=== PATIENT | male | born 1940 | race Caucasian/White ===

== ENCOUNTER 2025-05-05 11:50 | Outpatient (AMB) | payer MEDICARE, OTHER, SELFPAY ==
--- OUTSIDE RECORDS SUMMARY | 2024-08-24 10:00 | XMS_ITS ---
Author Organization [facility] Address [address] [facility] [place] [address] Care Team Providers Care Experimental Machinist Name Role Phone Iva MCDONNELL, Claude Primary Care Provider Neelam Evans Unavailable [phone] Karel Huang Unavailable [phone] REASON FOR VISIT r/s for sooner apt Medications Medication SIG (Take, Route, Frequency, Duration) Notes Start Date End Date Status Clopidogrel Bisulfate 75 MG 1 tablet Ora lly Once a day Active Metformin & Diet Manage Prod 500 MG as directed Orally Unknown Aspirin 81 MG 1 tablet Orally Once a day; Duration: 30 day(s) Active Caduet 5-80 MG as directed Orally Unknown Losartan Potassium 25 MG 1 tablet Orally Once a day; Duration: 30 day(s) Unknown DULoxetine HCl 20 MG 1 capsule Orally On ce a day Active Rosuvastatin Calcium 40 MG 1 tablet Oral ly Once a day Active Vitamin D3 Active Farxiga 10 MG 1 tablet Orally Once a day Active Ferrous Sulfate 325 (65 Fe) MG 1 tablet Orally Three times a Week Active Social History Tobacco Use: Social History Observation Description Date Details (start date - stop date) Former Smoker NA - NA Tobacco Use/Smoking Question Answer Notes Are you a: former smoker Additional Findings: Tobacco Non-User Current no n-smoker Alcohol Screen Question Answer Notes Did you have a drink containing alcohol in the p ast year? No Points 0 Interpretation Negative Tobacco use other than smoking: Question Answer Notes Are you an other tobacco user? No Vital Signs Height 5ft 6in in 08/24/2024 Weight 146 lbs 08/24/2024 BMI 23.56 kg/m2 08/24/2024 Encounters Encounter Location Date Provider Diagnosis [facility] [place] [address] [place] [address] 08/24/2024 Karel Huang Plan Of Treatment No Information Progress Notes * Rich BALLARD EDOB:[birth year] (84 yo M)Acc No.[id number]:08/24/2024 Progress Notes Patient: Rich MURPHY Provider: Ken Huang DPM :1940 A ge:84 Y S ex:Male Date:08/24/2024 [facility] Pcp:Claude Enrique MD Subjective: * Chief Complaints: * 1 . R/s for sooner apt. * ROS: G eneral/Constitutional: Nausea d enies. V omiting d enies. H ryan Thirst d enies. L oss appetite d enies. C hills d enies. F atigue d enies.?Fever d enies. N ight Sweats d enies. U nexplained weight loss d enies. U nexplained weight gain d enies. H EENTM: Dentures a dmits. D izziness d enies. G lasses/contacts a dmits. R etinopathy d enies. B lurred/double vision a dmits. T MJ?denies. D ischarge/drainage d enies. I mplants d enies. S ore throat d enies. D ental implants d enies. H adam of hearing a dmits. D ifficulty chewing/swallowing/speaking d enies. N ose bleeds d enies. S ore mouth d enies. ? R espiratory: On Oxygen d enies. P neumonia/pleurisy d enies.?Bronchitis d enies. E mphysema d enies. C oughing d enies. C ough blood?denies. S hortness of breath d enies. W heezing d enies. C ardiovascular: Pacemaker a dmits. M METAL TEMPERER d enies. W PW d enies. C HF d enies. H eart attack d enies. S eptal defect d enies. R apid beat d enies. C hest pain d enies. A trial Fib. d enies. M urmur/Palpitations d enies. G astrointestinal: Hemorrhoids d enies. S tomach/Abdominal pain d enies. D ark blood stool d enies. I rritable bowel d enies. C onstipation d enies. D iarrhea d enies. H ematology: Swelling a dmits. C lots d enies. V aricose Veins d enies. B ruising d enies. B leeding problem d enies. G enitourinary: Blood urine d enies. F requent/Painfu/urination/bladder control a dmits. K idney stones d enies. I nfection (UTI) d enies. N ephropathy d enies. s ex trans dis (STD) d enies. P rostate d enies. M usculoskeletal: Hammertoes d enies. B unions d enies. B ack Pain a dmits. M uscle Cramps/ Resting a dmits. M uscle cramps / walking a dmits.?Generalized aches and pains d enies. W eakness d enies. I nteg.: [place] d enies. S cars d enies. C orns/calluses?denies. I ngrown nails d enies. P ainful nails d enies. O pen Sores a dmits. R ashes d enies. N eurologic: Difficulty sleeping a dmits. B rain disorder d enies. N umbness a dmits. B alance trouble d enies. C onfusion d enies. F ainting/blackouts a dmits. T ingling a dmits. T remors a dmits. * Medical History: C holesterol, Diabetic, Heart disease, High blood pressure, Mumps, Chicken pox, Broken bones, CAD (Cholesterol), Cataracts, Covid-19, Diabetic, Kidney disease, Chicken pox, Numbness, Parkinsons disease, Poor circulation, Stroke, Vascular grafts. * Surgical History: C arotid surgery 2002, Bypass surgery 2004, Renal artery 2006, Basal cell 2023. * Family History: M other: , Stroke, diagnosed with Unspecified heart disease. F ather: , stroke, diagnosed with Diabetic - NIDDM, Unspecified essential hypertension, Unspecified heart disease, Family history of arthritis. * Social History: T obacco Use: T obacco Use/Smoking A re you a: f ormer smoker A dditional Findings: Tobacco Non-User C urrent non-smoker Tobacco use other than smoking A re you an other tobacco user? N o D rugs/Alcohol: D rugs H ave you used drugs other than those for medical reasons in the past 12 months? N o Alcohol Screen D id you have a drink containing alcohol in the past year? N o P oints 0 I nterpretation N egative M iscellaneous: C affeine: yes, frequency:, 1-2 cups per day. Marital status: . Occupation: Retired- senior accountant. * Medications: T aking DULoxetine HCl 20 MG Capsule Delayed Release Particles 1 capsule Orally Once a day , Taking Vitamin D3 , Taking Rosuvastatin Calcium 40 MG Tablet 1 tablet Orally Once a day , Taking Ferrous Sulfate 325 (65 Fe) MG Tablet 1 tablet Orally Three times a Week , Taking Farxiga 10 MG Tablet 1 tablet Orally Once a day , Taking Clopidogrel Bisulfate 75 MG Tablet 1 tablet Orally Once a day , Taking Aspirin 81 MG Tablet Chewable 1 tablet Orally Once a day , Unknown Metformin & Diet Manage Prod 500 MG Miscellaneous as directed Orally , Unknown Losartan Potassium 25 MG Tablet 1 tablet Orally Once a day , Unknown Caduet 5-80 MG Tablet as directed Orally Objective: * Vitals: H t: 5ft 6in, Wt: 146, BMI: 23.56, Shoe size: 9.5, Ht-cm: 167.64 cm, Wt-k.22 kg. Assessment: Plan: * Treatment: * Images: * The named appointment provid er may or may not be the originator of this progress note, and it is not deemed complete until electronically signed by the appointment provider. Sign off status: Pending * Provider: Ken Huang DPM Date: 10/24/2023 Generated for Bijal cat/Spencer/Seamus on: 05/05/2025 12:38 PM EDT
--- NOTE | 2025-05-05 11:53 | A.OFFVIS_ITS ---
Vital Signs 05/05/25 11:59 Height 5 ft 6 in Intake Visit Reasons: 6m pd Accompanied by: Spouse Allergies No Known Allergies Allergy (Verified 05/05/25 12:00) Medication List - Last Reconciled 05/05/25 by Jackie Loza CNP aspirin 81 mg PO DAILY carbidopa-levodopa 25-100 mg 1 tab PO TID clopidogrel 75 mg PO DAILY dapagliflozin propanediol (Farxiga) 10 mg PO DAILY dapagliflozin propanediol (Farxiga) 10 mg PO DAILY duloxetine 30 mg PO DAILY rosuvastatin 40 mg PO DAILY HPI Comments Details: 84 y/o man with PVD, REM sleep behavior disorder, mild parkinsonism with hand tremor, and peripheral neuropathy. In 09/2023, he had an episode when he was with his in a car when he became unresponsive for a few minutes. He was taken to [facility]. He was here with his . No further episodes of passing out since getting pacemaker in 06/2024. He was taking carbidopa-levodopa 25-100mg three times a day. Tremors are about the same. No functional impairment. No difficulty eating or drinking. Sleep was not so good, waking few times during the night. His noted that he was moving slower. Balance was off at times, but no falls. He was having some more pain in legs. He had follow up appointment soon to review vascular study results. He was more forgetful. [facility] Medical History (Updated 05/05/25 @ 12:10 by Jackie Loza CNP) Pacemaker Complex partial seizures Peripheral neuropathy Parkinsonism Unspecified atrial fibrillation Multiple cerebral infarctions Cerebral microvascular disease Special needs due to hearing impairment Spastic bladder REM sleep behavior disorder Review of Systems Const Denies chills, Denies daytime sleepiness, Reports difficulty sleeping, Denies fatigue, Denies fever(s), Denies frequent falls, Denies headache(s), Denies increased appetite, Denies poor appetite, Denies snoring, Denies weakness, Denies weight gain and Denies weight loss Eyes Denies loss of vision ENT Denies vertigo, Denies dizziness and Denies headache(s) Card Denies chest pain at rest, Denies chest pain with activity, Denies syncope, Denies leg edema and Denies palpitations Resp Denies snoring GI Denies constipation, Denies heartburn, Denies diarrhea and Denies nausea Denies urinary frequency, Denies urinary incontinence and Denies urinary urgency Musc Denies abnormal gait, Denies numbness and Denies tingling Skin/Breast Denies dry skin and Denies rash Neuro Denies abnormal gait, Denies vertigo, Denies dizziness, Denies syncope, Denies frequent falls, Denies headache(s), Denies lack of coordination, Denies loss of vision, Reports memory loss, Denies numbness, Denies restless legs, Denies seizure-like activity, Denies tingling, Denies paresthesias, Reports tremor(s) and Denies weakness Psych Denies anxiety, Denies depression, Denies auditory hallucinations, Reports memory loss, Denies visual hallucinations and Denies suicidal ideation Endo Denies fatigue and Denies palpitations Physical Exam Const Other: General Appearance:? normal, in no acute distress. Skin:? no rashes, no significant birthmarks. Heart:? S1, S2 normal, no murmurs. Lungs:? clear anteriorly and posteriorly. Extremities:? no edema. Psych:? alert, oriented, cognitive function intact, cooperative with exam. Neuro Other: Mental Status:?Normal attention, orientation, memory and affect.? Cranial Nerves:?Pupils are equal, round and reactive to light. External occular muscles are intact. Visual cedeno are full. Face is symmetrical. Facial sensations are normal. Tongue is midline. Palate elevates symmetrically. Shoulder shrugging is normal. Hearing to bedside conversation is decreased. Sensory Exam:?....? Coordination:?No ataxia,?no titubation.? Gait Exam: Cautious. Forward leaning posture with small stepped gait. Cerebellar Signs:?Bogedn-ov-yuav is okay. Extrapyramidal System:?Reduced facial expressions and decreased blinking frequency. Mild cogwheeling rigidity L > R. Pronator Drift:?Not present.? Involuntary Movements:?Mild bilateral hand resting tremor L > R. Speech:?Normal.? Results Reviewed Results Reviewed: Routine EEG at [facility] in Nov 2023: Slow NCV/EMG LE (in office) Moderate to severe axonal sensory and motor peripheral neuropathy. 07/24/23. MRI brain WO at [facility] in 2019: Mod MVD, some lesions seems embolic in nature Assessment & Plan Assessment & Plan (1) Parkinsonism: Code(s): G20.C - Parkinsonism, unspecified Category: Medical Qualifiers: Parkinsonism type: unspecified Qualified Code(s): G20.C - Parkinsonism, unspecified Plan: Increase carbidopa-levodopa 25-100mg 1 tablet four times a day. Referral for PT eval and treat placed. Stay physically active. (2) REM sleep behavior disorder: Code(s): G47.52 - REM sleep behavior disorder Category: Medical Plan: He tried gabapentin 300mg at bedtime in the past, but medication did not help and he was more tired during the day. (3) Peripheral neuropathy: Code(s): G62.9 - Polyneuropathy, unspecified Category: Medical Qualifiers: Peripheral neuropathy type: polyneuropathy, unspecified Qualified Code(s): G62.9 - Polyneuropathy, unspecified Plan . Orders: Orders PT Evaluation and Treatment Today G20.C - Parkinsonism, unspecified Medications: New carbidopa-levodopa 25-100 mg (Sinemet) 1 tab PO QID 360 tabs 1RF 90 days Coding Level of Care Code Est Pt Level 4 (95020) Diagnoses Parkinsonism, unspecified Parkinsonism type G20.C Parkinsonism type: unspecified REM sleep behavior disorder G47.52 Peripheral polyneuropathy G62.9 Peripheral neuropathy type: polyneuropathy, unspecified
--- OUTSIDE RECORDS SUMMARY | 2025-05-05 12:38 | XMS_ITS | Encounter Summary ---
Author Organization [facility] Address [address] [place] [address] Phone Care Team Providers Care Utilization Review Rn Name Role Phone Claude Enrique MD Primary Care Provider [phone] Encounter Details Date Type Department Care Team (Late Contact Info) Description 03/13/2021 Orders Only [facility] [address] [place] [address] ProviderShawanda MD Social History Tobacco Use Types Packs/Day Years Used Date Smoking Tobacco: Former Cigarettes Q uit: 10/20/1972 Sex and Gender Information Value Date Recorded Sex Assigned at Not on file Legal Sex Male 5:15 PM EST Gender Identity Not on file Sexual Orientation Not on file COVID-19 Exposure Response Date Recorded In the last month, have you been in contact with someone who was confirmed or suspected to have Coronavirus / COVID-19? No / Unsure 03/13/2021 2:13 PM EDT documented as of this encounter Plan of Treatment Upcoming Encounters Date Type Department Care Team (Late st Contact Info) Description 09/22/2025 10:30 AM EST Office Visit [facility] [address] [address] [place] [id number] Umu Hassan ARNP [address] [facility] [address] [place] [address] documented as of this encounter Procedures Procedure Name Priority Date/Time Associated Diagnosis Comments EXT RESULT ENTRY Routine 03/12/2021 documented in this encounter Results * EXT RESULT ENTRY (03/12/2021) us Historical Provider LAB BLOOD ORDERABLES Malia l Result documented in this encounter Visit Diagnoses Not on filedocumented in this encounter Care Teams Utilization Review Rn Relationship Specialty Start Date End Date Claude Enrique MD [employer] [address] [place] [address] PCP - General 10/30/20 documented as of this encounter
== END 2025-05-05 12:20 | disposition home or self-care (01) ==
LOC: HO.HSM 11:50
PROVIDERS: PCP Internal Medicine; Referring Provider Internal Medicine; Visit Provider Registered Nurse
DX: G20.C Parkinsonism, unspecified (principal); G47.52 REM sleep behavior disorder; G62.9 Polyneuropathy, unspecified
CPT/HCPCS: 99214

== ENCOUNTER → 2025-05-05 11:50 | Outpatient (BNVA) | payer MEDICARE, SELFPAY | PROVIDERS: PCP Internal Medicine; Referring Provider Internal Medicine; Visit Provider Registered Nurse | DX: G47.52 REM sleep behavior disorder (principal); G20.C Parkinsonism, unspecified; G62.9 Polyneuropathy, unspecified | CPT/HCPCS: 99212 ==